=== PATIENT | male | born 1985 | race Asian ===

== ENCOUNTER → 2016-07-17 | Outpatient (REF) | payer OTHER ==
[2016-07-17 12:19] LABS: ALBUMIN 3.9 GM/DL (3.2-5.2); ALBUMIN/GLOBULIN RATIO 0.98 (1.00-1.93); ALKALINE PHOSPHATASE 88 U/L (45-117); ALT/SGPT 71 U/L (12-78); ANION GAP 7 MEQ/L (8-16); AST/SGOT 35 U/L (15-37); BILIRUBIN,TOTAL 0.5 MG/DL (0.2-1.0); BLOOD UREA NITROGEN 14 MG/DL (7-18); CALCIUM LEVEL 9.1 MG/DL (8.5-10.1); CARBON DIOXIDE LEVEL 31 MEQ/L (21-32); CHLORIDE LEVEL 102 MEQ/L (98-107); CHOLESTEROL LEVEL 153 MG/DL (<200); CREATININE FOR GFR 0.85 MG/DL (0.70-1.30); GLOMERULAR FILTRATION RATE > 60.0 (>60); GLUCOSE, FASTING 96 MG/DL (70-105); POTASSIUM SERUM 4.2 MEQ/L (3.5-5.1); SODIUM LEVEL 140 MEQ/L (136-145); TOTAL PROTEIN 7.9 GM/DL (6.4-8.2); TRIGLYCERIDES LEVEL 103 MG/DL (<150)
== END ==
LOC: M SFHCPLAZ 09:42
PROVIDERS: ATTEND Physician Assistant
DX: R73.03 Prediabetes (principal); E78.5 Hyperlipidemia, unspecified

== ENCOUNTER 2016-07-28 00:49 | Emergency (ER) | payer MEDICAID, OTHER ==
[~2016-07-28] VITALS: Ht 154.9 cm; Wt 88.0 kg
[2016-07-28 00:56] VITALS: BP 141/89
[2016-07-28] MEDS ORDERED: ABIL15TA2 (01:12)
[2016-07-28] MEDS ORDERED: TRAZ50TA4 (01:12)
[2016-07-28] MEDS ORDERED: OMEP40CA2 (01:12)
[2016-07-28] MEDS ORDERED: EFFE75CA75 (01:12)
[2016-07-28] MEDS ORDERED: METF500T (01:12)
[2016-07-28] MEDS ORDERED: KETOROLAC 30 MG/ML VIAL (J1885) IV ONE (01:30)
[2016-07-28] MEDS ORDERED: NAPR500T PO (01:39)
[2016-07-28] MEDS ORDERED: KETOROLAC 30 MG/ML VIAL (J1885) IM ONE (01:45)
== END 2016-07-28 02:09 | disposition home or self-care (01) ==
LOC: M ED 01:51
DX: S33.9XXA Sprain of unspecified parts of lumbar spine and pelvis, initial encounter (principal); X50.9XXA Other and unspecified overexertion or strenuous movements or postures, initial encounter; Y92.89 Other specified places as the place of occurrence of the external cause; Y93.89 Activity, other specified; Y99.0 Civilian activity done for income or pay; E11.9 Type 2 diabetes mellitus without complications; K21.9 Gastro-esophageal reflux disease without esophagitis; F41.9 Anxiety disorder, unspecified; F32.9 Major depressive disorder, single episode, unspecified

== ENCOUNTER → 2016-10-29 | Outpatient (REF) | payer OTHER, MEDICAID ==
[~2016-10-29] MED LIST: ABIL15TA2; EFFE75CA75; METF500T; NAPR500T PO; OMEP40CA2; TRAZ50TA4
[2016-10-29 13:52] LABS: ALBUMIN 3.6 GM/DL (3.2-5.2); ALKALINE PHOSPHATASE 66 U/L (45-117); ALT/SGPT 36 U/L (12-78); ANION GAP 7 MEQ/L (8-16); AST/SGOT 20 U/L (15-37); BILIRUBIN,TOTAL 0.5 MG/DL (0.2-1.0); BLOOD UREA NITROGEN 8 MG/DL (7-18); CALCIUM LEVEL 9.2 MG/DL (8.5-10.1); CARBON DIOXIDE LEVEL 28 MEQ/L (21-32); CHLORIDE LEVEL 105 MEQ/L (98-107); CREATININE FOR GFR 0.83 MG/DL (0.70-1.30); GLOMERULAR FILTRATION RATE > 60.0 (>60); GLUCOSE, FASTING 90 MG/DL (70-105); POTASSIUM SERUM 4.3 MEQ/L (3.5-5.1); SODIUM LEVEL 140 MEQ/L (136-145); TOTAL PROTEIN 7.2 GM/DL (6.4-8.2)
== END ==
LOC: M LABDRAW1 12:59
PROVIDERS: ATTEND Physician Assistant
DX: R73.03 Prediabetes (principal)

== ENCOUNTER 2016-12-22 15:56 | Emergency (ER) | payer MEDICAID, OTHER ==
[~2016-12-22] VITALS: Ht 154.9 cm; Wt 72.7 kg
[2016-12-22 15:56] VITALS: BP 134/80
[~2016-12-22 15:56] MED LIST changes: -ABIL15TA2; +ABIL1TAB12; -METF500T; +METF500T13; +TRAZ50TA11; -TRAZ50TA4
[2016-12-22] MEDS ORDERED: ARIP1TAB10 (16:02)
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
== END 2016-12-22 17:17 | disposition home or self-care (01) ==
LOC: M ED 15:56
DX: M25.562 Pain in left knee (principal)

== ENCOUNTER 2017-01-06 10:13 | Emergency (ER) | payer OTHER ==
[~2017-01-06] VITALS: Ht 154.9 cm; Wt 75.9 kg
[2017-01-06 10:13] VITALS: BP 148/74
[~2017-01-06 10:13] MED LIST changes: +ARIP1TAB10
[2017-01-06] MEDS ORDERED: NAPR500T PO (10:41)
== END 2017-01-06 10:56 | disposition home or self-care (01) ==
LOC: M ED 10:13
DX: M25.562 Pain in left knee (principal); F99 Mental disorder, not otherwise specified; Z88.1 Allergy status to other antibiotic agents; Z88.2 Allergy status to sulfonamides; Z79.899 Other long term (current) drug therapy; Z79.01 Long term (current) use of anticoagulants

== ENCOUNTER → 2017-05-09 | Outpatient (REF) | payer OTHER ==
[2017-05-09 12:30] LABS: ALBUMIN 4.2 GM/DL (3.2-5.2); ALKALINE PHOSPHATASE 73 U/L (45-117); ALT/SGPT 38 U/L (12-78); ANION GAP 5 MEQ/L (8-16); AST/SGOT 24 U/L (7-37); BILIRUBIN,TOTAL 0.5 MG/DL (0.2-1.0); BLOOD UREA NITROGEN 11 MG/DL (7-18); CALCIUM LEVEL 9.6 MG/DL (8.5-10.1); CARBON DIOXIDE LEVEL 30 MEQ/L (21-32); CHLORIDE LEVEL 101 MEQ/L (98-107); CREATININE FOR GFR 0.71 MG/DL (0.70-1.30); GLOMERULAR FILTRATION RATE > 60.0 (>60); GLUCOSE, FASTING 100 MG/DL (70-105); POTASSIUM SERUM 4.7 MEQ/L (3.5-5.1); SODIUM LEVEL 136 MEQ/L (136-145); TOTAL PROTEIN 8.4 GM/DL (6.4-8.2)
== END ==
LOC: M SFHCPLAZ 08:54
PROVIDERS: ATTEND Physician Assistant
DX: R73.03 Prediabetes (principal)

== ENCOUNTER → 2017-10-04 | Outpatient (CLI) | payer OTHER ==
[2017-10-04 08:44] LABS: BASO # 0.1 10^3/uL (0.0-0.2); BASO % 0.7 % (0.0-1.0); EOS # 0.2 10^3/uL (0.0-0.50); EOS % 2.4 % (0.0-3.0); HEMATOCRIT 45.3 % (42.0-52.0); IMMATURE GRANULOCYTE % 0.6 % (0-3.0); LYMPH # 2.8 10^3/uL (1.5-4.5); LYMPH % 34.9 % (24.0-44.0); MEAN CORPUSCULAR HEMOGLOBIN 27.9 pg (27.0-33.0); MEAN CORPUSCULAR HGB CONC 33.1 g/dl (32.0-36.5); MEAN CORPUSCULAR VOLUME 84.4 fl (80.0-96.0); MONO # 0.9 10^3/uL (0.0-0.8); MONO % 10.7 % (0.0-5.0); NEUTROPHILS # 4.1 10^3/uL (1.8-7.7); NEUTROPHILS % 50.7 % (36.0-66.0); PLATELET COUNT, AUTOMATED 344 10^3/uL (150-450); RED BLOOD COUNT 5.37 10^6/uL (4.30-6.10); RED CELL DISTRIBUTION WIDTH 13.3 % (11.5-14.5); WHITE BLOOD COUNT 8.1 10^3/uL (4.0-10.0)
[2017-10-04 09:20] LABS: ALBUMIN 4.1 GM/DL (3.2-5.2); ALBUMIN/GLOBULIN RATIO 0.93 (1.00-1.93); ALKALINE PHOSPHATASE 68 U/L (45-117); ALT/SGPT 28 U/L (12-78); ANION GAP 6 MEQ/L (8-16); AST/SGOT 21 U/L (7-37); BILIRUBIN,TOTAL 0.5 MG/DL (0.2-1.0); BLOOD UREA NITROGEN 11 MG/DL (7-18); CALCIUM LEVEL 9.1 MG/DL (8.5-10.1); CARBON DIOXIDE LEVEL 28 MEQ/L (21-32); CHLORIDE LEVEL 106 MEQ/L (98-107); CHOLESTEROL LEVEL 258 MG/DL (<200); CHOLESTEROL RISK RATIO 5.058 (<5); CPK CREATINE PHOSPHOKINASE 226 U/L (39-308); CREATININE FOR GFR 0.79 MG/DL (0.70-1.30); FREE T4 0.81 NG/DL (0.76-1.46); GLOMERULAR FILTRATION RATE > 60.0 (>60); GLUCOSE, FASTING 110 MG/DL (70-100); HDL CHOLESTEROL 51 MG/DL (>40); LDL CHOLESTEROL 128.6 MG/DL (<100); NON-HDL-C 207 MG/DL; POTASSIUM SERUM 4.6 MEQ/L (3.5-5.1); SODIUM LEVEL 140 MEQ/L (136-145); TOTAL PROTEIN 8.5 GM/DL (6.4-8.2); TRIGLYCERIDES LEVEL 392 MG/DL (<150)
[2017-10-04 10:47] LABS: ESTIMATED AVERAGE GLUCOSE 126 MG/DL (60-110)
== END ==
LOC: M RAD 08:23
DX: K76.0 Fatty (change of) liver, not elsewhere classified (principal); J30.9 Allergic rhinitis, unspecified; E78.5 Hyperlipidemia, unspecified; E66.9 Obesity, unspecified; R73.01 Impaired fasting glucose
CPT/HCPCS: 76705

== ENCOUNTER → 2018-02-27 | Outpatient (REF) | payer OTHER ==
[2018-02-27 12:24] LABS: ALBUMIN/GLOBULIN RATIO 0.98 (1.00-1.93); ALKALINE PHOSPHATASE 74 U/L (45-117); ALT/SGPT 35 U/L (12-78); ANION GAP 4 MEQ/L (8-16); AST/SGOT 25 U/L (7-37); BILIRUBIN,TOTAL 0.5 MG/DL (0.2-1.0); BLOOD UREA NITROGEN 8 MG/DL (7-18); CALCIUM LEVEL 8.9 MG/DL (8.5-10.1); CARBON DIOXIDE LEVEL 31 MEQ/L (21-32); CHLORIDE LEVEL 105 MEQ/L (98-107); CHOLESTEROL LEVEL 189 MG/DL (<200); CREATININE FOR GFR 0.82 MG/DL (0.70-1.30); FREE T4 0.98 NG/DL (0.76-1.46); GLOMERULAR FILTRATION RATE > 60.0 (>60); GLUCOSE, FASTING 101 MG/DL (70-100); HDL CHOLESTEROL 50 MG/DL (>40); LDL CHOLESTEROL 94 MG/DL (<100); NON-HDL-C 139 MG/DL; POTASSIUM SERUM 4.6 MEQ/L (3.5-5.1); SODIUM LEVEL 140 MEQ/L (136-145); THYROID STIMULATING HORMONE 0.967 uIU/ML (0.358-3.740); TOTAL PROTEIN 8.1 GM/DL (6.4-8.2); TRIGLYCERIDES LEVEL 223 MG/DL (<150)
[2018-02-27 12:26] LABS: ESTIMATED AVERAGE GLUCOSE 117 MG/DL (60-110); HEMOGLOBIN A1c 5.7 %
== END ==
LOC: M SFHCPLAZ 10:00
DX: E78.5 Hyperlipidemia, unspecified (principal); F41.9 Anxiety disorder, unspecified; R73.01 Impaired fasting glucose

== ENCOUNTER → 2018-10-13 | Outpatient (REF) | payer OTHER ==
[~2018-10-13] MED LIST changes: +EFFE75CA2; -EFFE75CA75; +NAPR-837 PO; -NAPR500T PO; +TRAZ-160; -TRAZ50TA11
[2018-10-13 14:08] LABS: BASO # 0.1 10^3/uL (0.0-0.2); BASO % 0.5 % (0.0-1.0); EOS # 0.2 10^3/uL (0.0-0.50); EOS % 2.2 % (0.0-3.0); HEMATOCRIT 43.8 % (42.0-52.0); HEMOGLOBIN 13.7 g/dl (13.5-17.5); LYMPH # 2.5 10^3/uL (1.5-4.5); LYMPH % 22.9 % (24.0-44.0); MEAN CORPUSCULAR HEMOGLOBIN 27.4 pg (27.0-33.0); MEAN CORPUSCULAR HGB CONC 31.3 g/dl (32.0-36.5); MEAN CORPUSCULAR VOLUME 87.6 fl (80.0-96.0); MONO % 9.4 % (0.0-5.0); NEUTROPHILS # 7.1 10^3/uL (1.8-7.7); NEUTROPHILS % 64.7 % (36.0-66.0); PLATELET COUNT, AUTOMATED 346 10^3/uL (150-450); WHITE BLOOD COUNT 10.9 10^3/uL (4.0-10.0)
[2018-10-13 16:36] LABS: HEMOGLOBIN A1c 5.9 %
[2018-10-13 19:28] LABS: ALBUMIN 3.9 GM/DL (3.2-5.2); ALT/SGPT 24 U/L (12-78); BILIRUBIN,TOTAL 0.4 MG/DL (0.2-1.0); BLOOD UREA NITROGEN 8 MG/DL (7-18); CALCIUM LEVEL 9.4 MG/DL (8.5-10.1); CARBON DIOXIDE LEVEL 31 MEQ/L (21-32); CHLORIDE LEVEL 105 MEQ/L (98-107); CREATININE FOR GFR 0.77 MG/DL (0.70-1.30); FREE T4 0.96 NG/DL (0.76-1.46); GLOMERULAR FILTRATION RATE > 60.0 (>60); GLUCOSE, FASTING 107 MG/DL (70-100); POTASSIUM SERUM 4.5 MEQ/L (3.5-5.1); SODIUM LEVEL 140 MEQ/L (136-145); TOTAL PROTEIN 7.8 GM/DL (6.4-8.2)
== END ==
LOC: M SFHCPLAZ 10:07
PROVIDERS: ATTEND Physician Assistant Medical
DX: J30.9 Allergic rhinitis, unspecified (principal); R79.89 Other specified abnormal findings of blood chemistry; F41.9 Anxiety disorder, unspecified; R73.01 Impaired fasting glucose

== ENCOUNTER → 2018-11-14 | Outpatient (CLI) | payer OTHER ==
[~2018-11-14] MED LIST changes: -TRAZ-160; +TRAZ-252
--- NOTE | 2018-11-14 08:48 | REP ---
Right upper quadrant sonography: History: Fatty liver. Comparison sonography 10/04 normal measured at 0.4 cm. Liver parenchyma is somewhat echogenic as before. No focal liver lesion is seen. There is no evidence of ascites or right renal abnormality. The right kidney measures 10.0 x 5.3 x 5.3 cm. Impression: Findings suggestive of fatty infiltration of the liver. No focal liver lesion. Otherwise negative. Electronically Signed by Sathish Rivera MD 11/14/2018 10:26 A
== END ==
LOC: M RAD 06:54
PROVIDERS: ATTEND Physician Assistant Medical
DX: K76.0 Fatty (change of) liver, not elsewhere classified (principal)

== ENCOUNTER 2018-11-23 23:02 | Emergency (ER) | payer OTHER ==
[~2018-11-23] VITALS: Ht 154.9 cm; Wt 76.8 kg
[2018-11-24 00:15] VITALS: BP 132/78
--- NOTE | 2018-11-24 07:24 | REP ---
Clinical: Trauma. Technique: AP, lateral, bilateral oblique views right foot . Findings: The osseous structures and joint spaces are intact and normal. There is no evidence for acute fracture or dislocation. Surrounding soft tissues are unremarkable. No subcutaneous emphysema or radiodense foreign body. Impression: Normal right foot series . No acute fracture or dislocation. Electronically Signed by Shai Winston MD 11/24/2018 07:15 A
== END 2018-11-24 00:36 | disposition home or self-care (01) ==
LOC: M ED 23:02
DX: S93.601A Unspecified sprain of right foot, initial encounter (principal); X50.9XXA Other and unspecified overexertion or strenuous movements or postures, initial encounter; Y92.410 Unspecified street and highway as the place of occurrence of the external cause; E11.9 Type 2 diabetes mellitus without complications; K21.9 Gastro-esophageal reflux disease without esophagitis; F33.9 Major depressive disorder, recurrent, unspecified; F41.9 Anxiety disorder, unspecified; Z79.899 Other long term (current) drug therapy; Z79.84 Long term (current) use of oral hypoglycemic drugs; Z88.1 Allergy status to other antibiotic agents; Z88.2 Allergy status to sulfonamides

== ENCOUNTER 2018-11-27 21:23 | Emergency (ER) | payer OTHER ==
[~2018-11-27] VITALS: Ht 154.9 cm; Wt 74.1 kg
[2018-11-27 21:23] VITALS: BP 134/88
[2018-11-27] MEDS ORDERED: POLYSOL OP (22:25)
[2018-11-27] MEDS ORDERED: POLYTRIM OPTH DROPS 10ML OU ONE (22:30)
== END 2018-11-27 22:45 | disposition home or self-care (01) ==
LOC: M ED 21:23
DX: H10.33 Unspecified acute conjunctivitis, bilateral (principal); E11.9 Type 2 diabetes mellitus without complications; Z79.899 Other long term (current) drug therapy; Z88.2 Allergy status to sulfonamides; Z88.1 Allergy status to other antibiotic agents

== ENCOUNTER 2019-01-27 18:56 | Emergency (ER) | payer OTHER ==
[~2019-01-27] VITALS: Ht 152.4 cm; Wt 72.7 kg
[~2019-01-27 18:56] MED LIST changes: +POLYSOL OP
[2019-01-27] MEDS ORDERED: DOXY-350 PO (21:12)
[2019-01-27] MEDS ORDERED: LEVO0.5S15 OP (21:12)
[2019-01-27] MEDS ORDERED: diphenhydrAMINE 25 MG CAP PO ONE (21:15)
[2019-01-27] MEDS ORDERED: methylPREDNISolone INJ 125 MG/2 ML VIAL (J2930) IM ONE (21:15)
[2019-01-27 21:28] VITALS: BP 132/82
== END 2019-01-27 21:33 | disposition home or self-care (01) ==
LOC: M ED 18:56
DX: R21 Rash and other nonspecific skin eruption (principal); J32.1 Chronic frontal sinusitis; H10.33 Unspecified acute conjunctivitis, bilateral; E11.9 Type 2 diabetes mellitus without complications; F41.9 Anxiety disorder, unspecified; K76.0 Fatty (change of) liver, not elsewhere classified; K21.9 Gastro-esophageal reflux disease without esophagitis; Z88.1 Allergy status to other antibiotic agents; Z88.2 Allergy status to sulfonamides; Z79.84 Long term (current) use of oral hypoglycemic drugs; Z79.899 Other long term (current) drug therapy
CPT/HCPCS: 96372; 99283; J2930

== ENCOUNTER → 2019-05-14 | Outpatient (CLI) | payer OTHER ==
[~2019-05-14] MED LIST changes: +DOXY-350 PO; +LEVO0.5S15 OP; -OMEP40CA2; +OMEP40CA97
[2019-05-14 13:07] LABS: HEMOGLOBIN A1c 5.9 %
[2019-05-14 13:15] LABS: ALBUMIN 4.1 GM/DL (3.2-5.2); ALT/SGPT 22 U/L (12-78); BILIRUBIN,TOTAL 0.3 MG/DL (0.2-1.0); BLOOD UREA NITROGEN 9 MG/DL (7-18); CALCIUM LEVEL 9.2 MG/DL (8.5-10.1); CARBON DIOXIDE LEVEL 31 MEQ/L (21-32); CHLORIDE LEVEL 106 MEQ/L (98-107); CHOLESTEROL LEVEL 216 MG/DL (<200); CHOLESTEROL RISK RATIO 4.235 (<5); CREATININE FOR GFR 0.83 MG/DL (0.70-1.30); GLOMERULAR FILTRATION RATE > 60.0 (>60); GLUCOSE, FASTING 103 MG/DL (70-100); HDL CHOLESTEROL 51 MG/DL (>40); LDL CHOLESTEROL 119 MG/DL (<100); NON-HDL-C 165 MG/DL; POTASSIUM SERUM 4.4 MEQ/L (3.5-5.1); SODIUM LEVEL 141 MEQ/L (136-145); TRIGLYCERIDES LEVEL 232 MG/DL (<150)
== END ==
LOC: M LAB 11:52
PROVIDERS: ATTEND Physician Assistant Medical
DX: R79.89 Other specified abnormal findings of blood chemistry (principal); R73.01 Impaired fasting glucose; E78.5 Hyperlipidemia, unspecified

== ENCOUNTER 2019-08-08 04:24 | Inpatient (IN) | payer MEDICAID, OTHER ==
[~2019-08-08] VITALS: Ht 154.9 cm; Wt 77.2 kg
[2019-08-08] MEDS ORDERED: OMEP40CA97 PO (05:05)
[2019-08-08] MEDS ORDERED: METF-791 PO (05:05)
[2019-08-08] MEDS ORDERED: EFFE75CA2 PO (05:05)
[2019-08-08 05:07] LABS: HEMATOCRIT 49.2 % (42.0-52.0); HEMOGLOBIN 16.2 g/dl (13.5-17.5); MEAN CORPUSCULAR HEMOGLOBIN 28.2 pg (27.0-33.0); MEAN CORPUSCULAR HGB CONC 32.9 g/dl (32.0-36.5); MEAN CORPUSCULAR VOLUME 85.6 fl (80.0-96.0); PLATELET COUNT, AUTOMATED 372 10^3/uL (150-450); RED BLOOD COUNT 5.75 10^6/uL (4.30-6.10); WHITE BLOOD COUNT 11.8 10^3/uL (4.0-10.0)
[2019-08-08 05:35] LABS: AMPHETAMINES LEVEL URINE NEGATIVE (NEGATIVE); BARBITURATES URINE NEGATIVE (NEGATIVE); BENZODIAZEPINES URINE NEGATIVE (NEGATIVE); CANNABINOIDS URINE NEGATIVE (NEGATIVE); COCAINE METABOLITE URINE NEGATIVE (NEGATIVE); METHADONE URINE NEGATIVE (NEGATIVE); OPIATES URINE NEGATIVE (NEGATIVE); PHENCYCLIDINE URINE NEGATIVE (NEGATIVE)
[2019-08-08 05:54] LABS: ACETAMINOPHEN LEVEL < 2.0 UG/ML (10.0-30.0); ALBUMIN 4.7 GM/DL (3.2-5.2); ALT/SGPT 36 U/L (12-78); BILIRUBIN,DIRECT 0.1 MG/DL (0.0-0.2); BILIRUBIN,TOTAL 0.7 MG/DL (0.2-1.0); BLOOD UREA NITROGEN 10 MG/DL (7-18); CALCIUM LEVEL 10.1 MG/DL (8.5-10.1); CARBON DIOXIDE LEVEL 32 MEQ/L (21-32); CHLORIDE LEVEL 100 MEQ/L (98-107); CREATININE FOR GFR 0.98 MG/DL (0.70-1.30); ETHYL ALCOHOL (ETHANOL) < 0.003 % (0.000-0.010); GLOMERULAR FILTRATION RATE > 60.0 (>60); GLUCOSE, FASTING 117 MG/DL (70-100); POTASSIUM SERUM 4.2 MEQ/L (3.5-5.1); SALICYLATE LEVEL < 1.7 MG/DL (5.0-30.0); SODIUM LEVEL 138 MEQ/L (136-145); TOTAL PROTEIN 9.1 GM/DL (6.4-8.2)
[2019-08-08] MEDS ORDERED: OMEPRAZOLE 20 MG CAP PO ONE (08:30)
[2019-08-08] MEDS ORDERED: VENLAFAXINE **XR** 75MG CAPSULE PO ONE (08:30)
[2019-08-08] MEDS: metFORMIN (GLUCOPHAGE) 500 MG TAB PO ONE ×2 (08:46→08:50)
[2019-08-08] MEDS ORDERED: VENLAFAXINE **XR** 75MG CAPSULE PO SCH (09:00)
[2019-08-08] MEDS ORDERED: metFORMIN (GLUCOPHAGE) 500 MG TAB PO SCH (09:00)
[2019-08-08] MEDS ORDERED: OMEPRAZOLE 20 MG CAP PO SCH (09:00)
[2019-08-08] MEDS ORDERED: MOM 30ML SUSPENSION UDC PO PRN (12:45)
[2019-08-08] MEDS ORDERED: MAALOX 30 ML SUSP *UDC PO PRN (12:45)
[2019-08-08 13:27] VITALS: BP 147/89
--- NOTE | 2019-08-08 16:34 | HPEPDOC ---
General Date of Admission Aug 08, 2019 at 12:45 Date of Service: Aug 08, 2019 Chief Complaint The patient is a 33-year-old male admitted with a reason for visit of Unspecified Depression. Source: Patient Exam Limitations: No limitations Timing/Duration: Day(s) Severity: Moderate Associated Symptoms: Other (depression , anxiety) History of Present Illness HISTORY OF PRESENT ILLNESS: Patient is 33 years old male with past medical history of anxiety and depression, GERD, diabetes, who was admitted in the hospital with suicidal ideation. He denied any cardiovascular problem, breathing problem, GI problem or dysuria. He denies fever, chills, nausea, vomiting, shortness of breath, palpitations, diarrhea or dysuria Home Medications Scheduled Metformin HCl (Metformin HCl ER) 500 Mg Tab.er.24h, 500 MG PO ACS, (Reported) Omeprazole (Omeprazole) 40 Mg Capsule.dr, 40 MG PO DAILY, (Reported) Venlafaxine HCl (Effexor Xr) 75 Mg Cap.er.24h, 75 MG PO DAILY, (Reported) Allergies Coded Allergies: Sulfa (Sulfonamide Antibiotics) (Verified Allergy, Intermediate, 08/08/19) rash clarithromycin (Verified Allergy, Intermediate, 08/08/19) rash Past Medical History Medical History Diabetes type 2, anxiety, depression, GERD Family History Patient was adopted Social History * Smoker: Denies Alcohol: Denies Drugs: denies A-FIB/CHADSVASC A-FIB History Current/History of A-Fib/PAF?: No Current PO Anticoag Therapy: No Review of Systems Constitutional: Denies: Chills Eyes: Denies: Pain, Vision change ENT: Denies: Head Aches Skin: Denies: Rash, Lesions Pulmonary: Denies: Dyspnea Cardiovascular: Denies: Chest Pain Gastrointestinal: Denies: Nausea, Vomiting Genitourinary: Denies: Dysuria, Frequency Hematologic: Denies: Bruising Endocrine: Denies: Polydipsia Musculoskeletal: Denies: Neck Pain Neurological: Denies: Weakness Psych: Reports: Anxiety, Depression Physical Examination General Exam: Positive: Alert, Cooperative, No Acute Distress Eye Exam: Positive: PERRLA ENT Exam: Positive: Atraumatic Neck Exam: Positive: Supple; Negative: JVD Chest Exam: Positive: Clear to auscultation Heart Exam: Positive: Rate Normal Telemetry: Positive: No significant arrhythmia Abdomen Exam: Positive: Normal bowel sounds Extremity Exam: Positive: Clubbing Skin Exam: Positive: Nl turgor and temperature Neuro Exam: Positive: Normal Gait, Strength at 5/5 X4 ext Psych Exam: Positive: Mental status NL Vital Signs Vital Signs Date Time Temp Pulse Resp B/P (MAP) Pulse Ox O2 Delivery O2 Flow Rate FiO2 08/08/19 13:27 98.4 100 18 147/89 (108) 98 Room Air Laboratory Data Labs 24H Laboratory Tests 2 08/08/19 04:57: Nucleated Red Blood Cells % (auto) 0.0, Anion Gap 6L, Glomerular Filtration Rate > 60.0, Calcium Level 10.1, Total Bilirubin 0.7, Direct Bilirubin 0.1, Aspartate Amino Transf (AST/SGOT) 20, Alanine Aminotransferase (ALT/SGPT) 36, Alkaline Phosphatase 74, Total Protein 9.1H, Albumin 4.7, Albumin/Globulin Ratio 1.07, Thyroid Stimulating Hormone (TSH) 3.810H, Salicylates Level < 1.7L, Urine Opiates Screen NEGATIVE, Urine Methadone Screen NEGATIVE, Acetaminophen Level < 2.0L, Urine Barbiturates Screen NEGATIVE, Urine Phencyclidine Screen NEGATIVE, Urine Amphetamines Screen NEGATIVE, Urine Benzodiazepines Screen NEGATIVE, Urine Cocaine Metabolite Screen NEGATIVE, Urine Cannabinoids Screen NEGATIVE, Ethyl Alcohol Level < 0.003 CBC/BMP Laboratory Tests 08/08/19 04:57 Assessment/Plan Patient is 33 years old male with past medical history of anxiety and depression, GERD, diabetes, who was admitted in the hospital with suicidal ideation. He denied any cardiovascular problem, breathing problem, GI problem or dysuria. He denies fever, chills, nausea, vomiting, shortness of breath, palpitations, diarrhea or dysuria Problems (1) Depression Status: Acute Problem Text: Management per Psych team (2) Diabetes mellitus Status: Chronic Problem Text: Will check HbA1c Glucose levels under control Continue metformin Diabetes diet (3) GERD (gastroesophageal reflux disease) Status: Chronic Problem Text: Not in acute exacerbation Continue omeprazole by mouth Plan / VTE VTE Prophylaxis Ordered?: No VTE Exclusion Mechanical Proph: Low Risk for VTE SILVESTRE CONNOR DO Aug 08, 2019 16:34
[2019-08-08 17:08] LABS: HEMOGLOBIN A1c 6.1 %
[2019-08-08 17:25] VITALS: BP 128/79
[2019-08-08] MEDS: metFORMIN XR 500MG TAB *GLUCOPHAGE XR PO SCH (17:31)
[2019-08-08] MEDS: ACETAMINOPHEN TAB 650MG DOSE (2X325MG) PO PRN (20:24)
[2019-08-08] MEDS: traZODone 25MG PER 1/2 TABLET PO PRN (23:08)
[2019-08-09 06:24] VITALS: BP 143/89
[2019-08-09] MEDS: OMEPRAZOLE 20 MG CAP PO SCH (08:32)
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
[2019-08-09] MEDS ORDERED: VENLAFAXINE **XR** 75MG CAPSULE PO ONE (11:00)
[2019-08-09 15:00] VITALS: BP 132/80
[2019-08-09] MEDS: metFORMIN XR 500MG TAB *GLUCOPHAGE XR PO SCH (17:26)
[2019-08-09] MEDS: traZODone 25MG PER 1/2 TABLET PO PRN (22:11)
[2019-08-09] MEDS: ACETAMINOPHEN TAB 650MG DOSE (2X325MG) PO PRN (22:11)
[2019-08-10 06:06] VITALS: BP 130/82
[2019-08-10] MEDS: OMEPRAZOLE 20 MG CAP PO SCH (08:20)
[2019-08-10] MEDS: VENLAFAXINE **XR** 75MG CAPSULE PO SCH (08:20)
--- NOTE | 2019-08-10 09:31 | MHIPNPDOC ---
[facility] Progress Note Progress Note Inpatient Progress Note Hari Pham MRN: N/A Date of : N/A Date of Service: 08/10/2019 History of Present Illness The patient, a 33-year-old man with a history of reported depression and autistic traits, presents after a girlfriend cheats on him, making him feel suicidal. Interval History The patient is met with today. He reports that he is much improved since increasing his Effexor to 150 mg daily. The patient reports that he is tolerating this well with no side effects. He has been attending groups, anxious at times and has difficulty socializing due to likely autistic traits, otherwise has no behavioral problems. He reports that he is feeling ready for discharge. Mother is contacted, reports patient is at baseline. Review Of Systems General: Denies fever or appetite changes Cardiovascular: Denies chest pain or palpitations GI: Denies nausea, vomiting, or bowel changes Respiratory: Denies shortness of breath or cough Neuro: Denies dizziness, tremors Derm: Denies any rashes or pruritus : Denies any dysuria or urinary problems MSK: Denies any muscle tightness or stiffness HEENT: Denies any vision changes or headaches Psychotherapy None on this visit. Vital Signs Reviewed. Mental Status Examination General: Well dressed with good hygiene Speech: Spontaneous and fluid Thought processes: Linear and logical MSK: Smooth and coordinated gait, no signs of tremors or involuntary orofacial movements Thought content: Future orientated Abstract reasoning, and computation: Intact Description of associations: Intact Description of abnormal or psychotic thoughts: Denies any suicidal or homicidal ideation. Denies any auditory or visual hallucinations. Does not appear to be responding to internal stimuli. Does not appear to be endorsing any bizarre or paranoid ideation. Judgment: fair Insight: fair Orientation: Alert and orientated 3 Cognition: Grossly normal Recent and remote memory: Intact Attention span and concentration: Intact Fund of knowledge: Adequate Mood: "okay" Affect: Euthymic with a full range Diagnoses Adjustment disorder with disruption of mood and conduct. Autistic traits. Assessment and Plan Adjustment disorder: Continue Effexor 150 mg daily. Autistic traits: Recommend outpatient therapy. Disposition Discharge tomorrow. Time Spent 15 minutes. Saturday Vital Signs Vital Signs Date Time Temp Pulse Resp B/P (MAP) Pulse Ox O2 Delivery O2 Flow Rate FiO2 08/10/19 06:06 97.7 72 16 130/82 (98) 08/09/19 15:00 98 Room Air Current Medications Current Medications Medications (Trade) Dose Ordered Sig/Dionna Route PRN Reason Start Time Stop Time Status Last Admin Dose Admin Acetaminophen (Tylenol Tab) 650 mg Q6HP PRN PO HEADACHE or DISCOMFORT 08/08/19 12:45 08/09/19 22:11 Al Hydrox/Mg Hydrox/Simethicone (Mylanta) 30 ml Q4HP PRN PO HEARTBURN/INDIGESTION 08/08/19 12:45 Home Med (Med Rec Complete!) ASDIRECTED XX 08/08/19 08:30 08/08/19 08:26 DC Magnesium Hydroxide (Milk Of Magnesia) 30 ml DAILYPRN PRN PO CONSTIPATION 08/08/19 12:45 Metformin HCl (Glucophage Xr) 500 mg ACS PO 08/08/19 17:30 08/09/19 17:26 Metformin HCl (Glucophage) 500 mg DAILY PO 08/08/19 09:00 Cancel Omeprazole (PriLOSEC) 40 mg DAILY PO 08/08/19 09:00 Cancel Omeprazole (PriLOSEC) 40 mg DAILY PO 08/09/19 09:00 08/10/19 08:20 Trazodone HCl (Desyrel) 25 mg QHSP PRN PO INSOMNIA 08/08/19 22:52 08/09/19 22:11 Venlafaxine HCl (Effexor Xr) 75 mg DAILY PO 08/08/19 09:00 Cancel Venlafaxine HCl (Effexor Xr) 150 mg DAILY PO 08/10/19 09:00 08/10/19 08:20 Allergies Coded Allergies: Sulfa (Sulfonamide Antibiotics) (Verified Allergy, Intermediate, 08/08/19) rash clarithromycin (Verified Allergy, Intermediate, 08/08/19) rash SIMI JOHNSON DO Aug 10, 2019 09:31
[2019-08-10 16:00] VITALS: BP 133/69
[2019-08-10] MEDS: metFORMIN XR 500MG TAB *GLUCOPHAGE XR PO SCH (17:17)
[2019-08-10] MEDS: traZODone 25MG PER 1/2 TABLET PO PRN (21:10)
[2019-08-11 06:23] VITALS: BP 139/80
[2019-08-11] MEDS: OMEPRAZOLE 20 MG CAP PO SCH (08:20)
[2019-08-11] MEDS: VENLAFAXINE **XR** 75MG CAPSULE PO SCH (08:20)
[2019-08-11] MEDS ORDERED: VENL75CA47 PO (09:19)
--- NOTE | 2019-08-11 09:43 | MHDSPDOC ---
[facility] Discharge Summary Discharge Summary DATE OF ADMISSION: Aug 08, 2019 at 12:45 DATE OF DISCHARGE: 08/10/19 Discharge Hari Pham MRN: N/A Date of : N/A Date of Service: 08/11/2019 Diagnoses Adjustment disorder with disruption of mood and conduct. Autistic traits. History of Present Illness The patient, a 33-year-old man with a history of reported depression and autistic traits, presents after a girlfriend cheats on him, making him feel suicidal. Consultants Involved Hospitalist/PCP screening Treatment and Progress On The Unit Patient was admitted to the inpatient mental health unit after reportedly feeling suicidal. He was increased from 75 up to 150 mg daily of his Effexor with positive result. He did well on the unit, socialized and became more calm as he was present on the unit. It became quite clear that his talkativity and s ocialization problems are due to potentially autistic traits. He had no behavioral problems and eventually improved. No longer suicidal, requested discharge. Discharge Assessment 33-year-old man with an adjustment on top of like the autistic traits presents and has increased on his Effexor with positive results, he improves well with mildly supportive treatment. The patient at the time of discharge did not meet criteria for involuntary admission/extension due to having a normal mental status exam, fair insight into the situation, They are engaged in the discharge process, as well as being friendly and amenable in behavioral control and havent been engaging in any observed concerning behavior or ideation recently. They decline voluntary extension/admission at this time and must be discharged in good hattie, as Im unable to make a case for holding the patient against their will. They may have historical risk factors of admissions and other interactions with psychiatry however, those are not modifiable from a clinical perspective. The patient will need to be discharged in good hattie. Mental Status Examination General: Well dressed with good hygiene Speech: Spontaneous and fluid Thought processes: Linear and logical MSK: Smooth and coordinated gait, no signs of tremors or involuntary orofacial movements Thought content: Future orientated Abstract reasoning, and computation: Intact Description of associations: Intact Description of abnormal or psychotic thoughts: Denies any suicidal or homicidal ideation. Denies any auditory or visual hallucinations. Does not appear to be responding to internal stimuli. Does not appear to be endorsing any bizarre or paranoid ideation. Judgment: fair Insight: fair Orientation: Alert and orientated 3 Cognition: Grossly normal Recent and remote memory: Intact Attention span and concentration: Intact Fund of knowledge: Adequate Mood: "okay" Affect: Euthymic with a full range Follow Up The social work team worked during the predischarge meeting in order to evaluate for further issues of lethality address them fully before discharge. They worked on safety planning with the patient's family members in order to ensure that the patient will have a safe and effective discharge. Time Spent The amount of time spent in the coordination of care for this patient was approximately 40 minutes. Saturday Vital Signs/I&Os Vital Signs Date Time Temp Pulse Resp B/P (MAP) Pulse Ox O2 Delivery O2 Flow Rate FiO2 08/11/19 06:23 98.7 83 16 139/80 (99) 08/10/19 11:21 Room Air 08/09/19 15:00 98 Medications Scheduled Metformin HCl (Metformin HCl ER) 500 Mg Tab.er.24h, 500 MG PO ACS, (Reported) Omeprazole (Omeprazole) 40 Mg Capsule.dr, 40 MG PO DAILY, (Reported) Venlafaxine HCl (Venlafaxine HCl ER) 75 Mg Cap.er.24h, 150 MG PO DAILY for mood for 7 Days, #14 Allergies Coded Allergies: Sulfa (Sulfonamide Antibiotics) (Verified Allergy, Intermediate, 08/08/19) rash clarithromycin (Verified Allergy, Intermediate, 08/08/19) rash SIMI JOHNSON DO Aug 11, 2019 09:43
== END 2019-08-11 11:50 | disposition home or self-care (01) | DRG 754 ==
LOC: M ED 04:24 → M ED INP 12:45 → M PSY 13:52
PROVIDERS: ADMIT Psychiatry & Neurology Psychiatry; ATTEND Psychiatry & Neurology Addiction Medicine
DX: F43.21 Adjustment disorder with depressed mood (principal); F43.24 Adjustment disorder with disturbance of conduct; F60.89 Other specific personality disorders; F41.9 Anxiety disorder, unspecified; Z56.0 Unemployment, unspecified; Z91.411 Personal history of adult psychological abuse; Z79.899 Other long term (current) drug therapy; E11.9 Type 2 diabetes mellitus without complications; Z79.84 Long term (current) use of oral hypoglycemic drugs; Z88.2 Allergy status to sulfonamides; Z88.1 Allergy status to other antibiotic agents; K21.9 Gastro-esophageal reflux disease without esophagitis; F32.9 Major depressive disorder, single episode, unspecified; F84.0 Autistic disorder

== ENCOUNTER 2020-01-15 11:39 | Emergency (ER) | payer MEDICAID, OTHER ==
[~2020-01-15] VITALS: Ht 154.9 cm; Wt 77.3 kg
[~2020-01-15 11:39] MED LIST changes: +EFFE75CA2 PO; -LEVO0.5S15 OP; +LEVO0.5S16 OP; +METF-838 PO; +OMEP40CA97 PO; +VENL75CA47 PO
--- NOTE | 2020-01-15 13:15 | REPVR ---
PROCEDURE INFORMATION: Exam: XR Left Foot Complete Exam date and time: 01/15/2020 12:14 PM Age: 34 years old Clinical indication: Injury or trauma; Fall; Initial encounter; Sprain or strain; Foot; Left; Additional info: Trauma, pain over 1-2 metatarsal . TECHNIQUE: Imaging protocol: XR Left foot. Views: 3 or more views. COMPARISON: CR Foot, complete 11/23/2018 11:38 PM FINDINGS: Bones/joints: The tarsometatarsal joint space at the 1st cuneiform and 2nd metatarsal appears widened. The 2nd metatarsal medial margin appears slightly laterally subluxed relative to the 2nd cuneiform medial margin. The 4th metatarsal medial margin appears slightly medially subluxed relative to the medial cuboid margin. No acute fracture is identified. Soft tissues: Midfoot soft tissue swelling. IMPRESSION: Findings highly suspicious for midfoot ligamentous injury (including the Lisfranc ligament) with disruption of the tarsometatarsal joints as described. Further evaluation with MRI is recommended. Electronically signed by: Evaristo Caro On 01/15/2020 13:16:02 PM
[2020-01-15 14:02] VITALS: BP 151/92
== END 2020-01-15 14:58 | disposition home or self-care (01) ==
LOC: M ED 11:39
DX: S99.922A Unspecified injury of left foot, initial encounter (principal); X50.9XXA Other and unspecified overexertion or strenuous movements or postures, initial encounter; Y92.018 Other place in single-family (private) house as the place of occurrence of the external cause; E11.9 Type 2 diabetes mellitus without complications; K21.9 Gastro-esophageal reflux disease without esophagitis; Z79.899 Other long term (current) drug therapy; Z79.84 Long term (current) use of oral hypoglycemic drugs; Z88.1 Allergy status to other antibiotic agents; Z88.2 Allergy status to sulfonamides

== ENCOUNTER → 2020-02-25 | Outpatient (REF) | payer OTHER ==
[2020-02-25 14:49] LABS: CHOLESTEROL LEVEL 339 MG/DL (<200); CHOLESTEROL RISK RATIO 6.519 (<5); FREE T4 1.05 NG/DL (0.76-1.46); HDL CHOLESTEROL 52 MG/DL (>40); NON-HDL-C 287 MG/DL; THYROID STIMULATING HORMONE 0.687 uIU/ML (0.358-3.740); TRIGLYCERIDES LEVEL 792 MG/DL (<150)
[2020-02-25 14:55] LABS: HEMOGLOBIN A1c 5.9 %
== END ==
LOC: M SFHCPLAZ 09:11
PROVIDERS: ATTEND Physician Assistant Medical
DX: R73.01 Impaired fasting glucose (principal); F41.9 Anxiety disorder, unspecified; E78.5 Hyperlipidemia, unspecified

== ENCOUNTER → 2020-04-14 | Outpatient (CLI) | payer OTHER, MEDICAID ==
[2020-04-14 11:58] LABS: BASO % 0.6 % (0.0-1.0); EOS # 0.2 10^3/uL (0.0-0.5); EOS % 2.4 % (0.0-3.0); HEMOGLOBIN 15.4 g/dl (13.5-17.5); LYMPH # 2.7 10^3/uL (1.5-5.0); LYMPH % 39.6 % (24.0-44.0); MEAN CORPUSCULAR HEMOGLOBIN 27.4 pg (27.0-33.0); MEAN CORPUSCULAR HGB CONC 31.4 g/dl (32.0-36.5); MEAN CORPUSCULAR VOLUME 87.2 fl (80.0-96.0); MONO # 0.6 10^3/uL (0.0-0.8); MONO % 8.6 % (0.0-5.0); NEUTROPHILS # 3.3 10^3/uL (1.5-8.5); NEUTROPHILS % 48.4 % (36.0-66.0); PLATELET COUNT, AUTOMATED 375 10^3/uL (150-450); RED BLOOD COUNT 5.62 10^6/uL (4.30-6.10); WHITE BLOOD COUNT 6.7 10^3/uL (4.0-10.0)
[2020-04-14 12:55] LABS: ALBUMIN 4.4 GM/DL (3.2-5.2); ALT/SGPT 44 U/L (12-78); BILIRUBIN,TOTAL 0.6 MG/DL (0.2-1.0); BLOOD UREA NITROGEN 11 MG/DL (7-18); CALCIUM LEVEL 9.9 MG/DL (8.5-10.1); CARBON DIOXIDE LEVEL 29 MEQ/L (21-32); CHLORIDE LEVEL 103 MEQ/L (98-107); CHOLESTEROL LEVEL 177 MG/DL (<200); CREATININE FOR GFR 0.87 MG/DL (0.70-1.30); GLOMERULAR FILTRATION RATE > 60.0 (>60); GLUCOSE, FASTING 113 MG/DL (70-100); HDL CHOLESTEROL 51 MG/DL (>40); LDL CHOLESTEROL 73 MG/DL (<100); NON-HDL-C 126 MG/DL; POTASSIUM SERUM 4.7 MEQ/L (3.5-5.1); SODIUM LEVEL 138 MEQ/L (136-145); THYROID STIMULATING HORMONE 0.923 uIU/ML (0.358-3.740); TOTAL PROTEIN 8.8 GM/DL (6.4-8.2); TRIGLYCERIDES LEVEL 265 MG/DL (<150)
[2020-04-14 13:13] LABS: HEMOGLOBIN A1c 5.9 %
== END ==
LOC: M PLALAB 09:11
PROVIDERS: ATTEND Physician Assistant Medical
DX: E78.2 Mixed hyperlipidemia (principal); I10 Essential (primary) hypertension; E11.9 Type 2 diabetes mellitus without complications; R53.83 Other fatigue; E03.9 Hypothyroidism, unspecified

== ENCOUNTER 2020-11-11 19:00 | Emergency (ER) | payer OTHER, MEDICAID ==
[~2020-11-11] VITALS: Ht 152.4 cm; Wt 84.0 kg
[~2020-11-11 19:00] MED LIST changes: +OMEP40CA4; +OMEP40CA4 PO; -OMEP40CA97; -OMEP40CA97 PO
[2020-11-11 19:52] LABS: HEMATOCRIT 40.7 % (42.0-52.0); HEMOGLOBIN 13.1 g/dl (13.5-17.5); MEAN CORPUSCULAR HEMOGLOBIN 28.1 pg (27.0-33.0); MEAN CORPUSCULAR HGB CONC 32.2 g/dl (32.0-36.5); MEAN CORPUSCULAR VOLUME 87.2 fl (80.0-96.0); PLATELET COUNT, AUTOMATED 355 10^3/uL (150-450); RED BLOOD COUNT 4.67 10^6/uL (4.30-6.10); WHITE BLOOD COUNT 10.3 10^3/uL (4.0-10.0)
[2020-11-11 20:14] LABS: ACETAMINOPHEN LEVEL < 2.0 UG/ML (10.0-30.0); ALBUMIN 3.8 GM/DL (3.2-5.2); ALT/SGPT 63 U/L (12-78); BILIRUBIN,DIRECT < 0.1 MG/DL (0.0-0.2); BILIRUBIN,TOTAL 0.2 MG/DL (0.2-1.0); BLOOD UREA NITROGEN 10 MG/DL (7-18); CALCIUM LEVEL 9.1 MG/DL (8.5-10.1); CARBON DIOXIDE LEVEL 29 MEQ/L (21-32); CHLORIDE LEVEL 106 MEQ/L (98-107); CREATININE FOR GFR 0.78 MG/DL (0.70-1.30); ETHYL ALCOHOL (ETHANOL) < 0.003 % (0.000-0.010); GLOMERULAR FILTRATION RATE > 60.0 (>60); GLUCOSE, FASTING 114 MG/DL (70-100); SALICYLATE LEVEL < 1.7 MG/DL (5.0-30.0); SODIUM LEVEL 140 MEQ/L (136-145); TOTAL PROTEIN 7.8 GM/DL (6.4-8.2)
[2020-11-11 20:43] LABS: AMPHETAMINES LEVEL URINE NEGATIVE (NEGATIVE); BARBITURATES URINE NEGATIVE (NEGATIVE); BENZODIAZEPINES URINE NEGATIVE (NEGATIVE); CANNABINOIDS URINE NEGATIVE (NEGATIVE); COCAINE METABOLITE URINE NEGATIVE (NEGATIVE); METHADONE URINE NEGATIVE (NEGATIVE); OPIATES URINE NEGATIVE (NEGATIVE); PHENCYCLIDINE URINE NEGATIVE (NEGATIVE)
[2020-11-11] MEDS ORDERED: NS 1,000 ML IV ONE (20:45)
[2020-11-11 20:54] LABS: ATYPICAL LYMPH 2 % (0-5); EOSINOPHILS 1 % (0-3); LYMPHOCYTES 49 % (16-44); MONOCYTES 1 % (0-5); NEUTROPHILS 47 % (28-66)
[2020-11-11 20:55] LABS: OVALOCYTES 1+; PLATELET ESTIMATE NORMAL (NORMAL); POIKILOCYTOSIS 1+; SMUDGE CELLS 2+
[2020-11-11 20:56] LABS: POLYCHROMASIA 1+
[2020-11-11 23:17] VITALS: BP 142/88
--- NOTE | 2020-11-12 07:49 | ECGEPIP ---
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
== END 2020-11-11 23:17 | disposition home or self-care (01) ==
LOC: M ED 19:00
DX: R55 Syncope and collapse (principal); E86.0 Dehydration; E11.9 Type 2 diabetes mellitus without complications; E78.5 Hyperlipidemia, unspecified; F33.9 Major depressive disorder, recurrent, unspecified; Z79.899 Other long term (current) drug therapy; Z79.84 Long term (current) use of oral hypoglycemic drugs; Z88.1 Allergy status to other antibiotic agents; Z88.2 Allergy status to sulfonamides

== ENCOUNTER → 2021-03-31 | Outpatient (CLI) | payer OTHER, MEDICAID ==
[2021-03-31 12:05] LABS: BASO # 0.1 10^3/uL (0.0-0.2); BASO % 0.7 % (0.0-1.0); EOS # 0.2 10^3/uL (0.0-0.5); EOS % 2.2 % (0.0-3.0); HEMATOCRIT 48.9 % (42.0-52.0); HEMOGLOBIN 15.5 g/dl (13.5-17.5); LYMPH # 3.9 10^3/uL (1.5-5.0); MEAN CORPUSCULAR HEMOGLOBIN 27.5 pg (27.0-33.0); MEAN CORPUSCULAR HGB CONC 31.7 g/dl (32.0-36.5); MEAN CORPUSCULAR VOLUME 86.7 fl (80.0-96.0); MONO # 0.9 10^3/uL (0.0-0.8); MONO % 9.2 % (2.0-8.0); NEUTROPHILS # 5.1 10^3/uL (1.5-8.5); NEUTROPHILS % 49.6 % (36.0-66.0); PLATELET COUNT, AUTOMATED 346 10^3/uL (150-450); RED BLOOD COUNT 5.64 10^6/uL (4.30-6.10); WHITE BLOOD COUNT 10.2 10^3/uL (4.0-10.0)
[2021-03-31 12:37] LABS: ALBUMIN 4.2 GM/DL (3.2-5.2); ALT/SGPT 50 U/L (12-78); BILIRUBIN,TOTAL 0.4 MG/DL (0.2-1.0); BLOOD UREA NITROGEN 9 MG/DL (7-18); CARBON DIOXIDE LEVEL 33 MEQ/L (21-32); CHLORIDE LEVEL 102 MEQ/L (98-107); CHOLESTEROL LEVEL 148 MG/DL (<200); CHOLESTEROL RISK RATIO 3.217 (<5); CREATININE FOR GFR 0.88 MG/DL (0.70-1.30); FREE T4 1.01 NG/DL (0.76-1.46); GLOMERULAR FILTRATION RATE > 60.0 (>60); GLUCOSE, FASTING 117 MG/DL (70-100); HDL CHOLESTEROL 46 MG/DL (>40); LDL CHOLESTEROL 51 MG/DL (<100); NON-HDL-C 102 MG/DL; POTASSIUM SERUM 4.9 MEQ/L (3.5-5.1); RHEUMATOID FACTOR QUANT < 10.0 IU/ML (<15.0); SODIUM LEVEL 136 MEQ/L (136-145); TOTAL PROTEIN 8.4 GM/DL (6.4-8.2); TRIGLYCERIDES LEVEL 255 MG/DL (<150)
[2021-03-31 12:42] LABS: ERYTHROCYTE SEDIMENTATION RATE 7 mm/hr (0-15)
[2021-03-31 12:45] LABS: HEMOGLOBIN A1c 6.1 %
[2021-04-01 19:07] LABS: ANTINUCLEAR ANTIBODIES DIRECT Negative (Negative)
== END ==
LOC: M PLALAB 09:30
PROVIDERS: ATTEND Physician Assistant Medical
DX: R53.83 Other fatigue (principal); I10 Essential (primary) hypertension; R73.03 Prediabetes; E78.2 Mixed hyperlipidemia; Q98.0 Klinefelter syndrome karyotype 47, XXY

== ENCOUNTER 2023-09-21 11:48 | Emergency (ER) | payer MEDICAID, OTHER ==
[~2023-09-21] VITALS: Ht 152.4 cm; Wt 79.1 kg
[~2023-09-21 11:48] MED LIST changes: -DOXY-350 PO; +DOXY-440 PO
[2023-09-21] MEDS ORDERED: ATOR40TA75 PO (11:57)
[2023-09-21] MEDS ORDERED: LISI20TA33 PO (11:57)
[2023-09-21 13:59] LABS: BASO # 0.1 10^3/uL (0.0-0.2); BASO % 0.4 % (0.0-1.0); EOS % 0.2 % (0.0-3.0); HEMATOCRIT 44.9 % (42.0-52.0); HEMOGLOBIN 14.6 g/dl (13.5-17.5); LYMPH # 1.8 10^3/uL (1.5-5.0); LYMPH % 14.9 % (24.0-44.0); MEAN CORPUSCULAR HEMOGLOBIN 28.5 pg (27.0-33.0); MEAN CORPUSCULAR HGB CONC 32.5 g/dl (32.0-36.5); MEAN CORPUSCULAR VOLUME 87.7 fl (80.0-96.0); MONO # 0.7 10^3/uL (0.0-0.8); MONO % 5.6 % (2.0-8.0); NEUTROPHILS # 9.2 10^3/uL (1.5-8.5); NEUTROPHILS % 78.7 % (36.0-66.0); PLATELET COUNT, AUTOMATED 340 10^3/uL (150-450); RED BLOOD COUNT 5.12 10^6/uL (4.30-6.10); WHITE BLOOD COUNT 11.7 10^3/uL (4.0-10.0)
[2023-09-21 14:25] LABS: ALBUMIN 4.5 G/DL (3.2-5.2); ALKALINE PHOSPHATASE 75 U/L (46-116); ALT/SGPT 50 U/L (7.0-40); AST/SGOT 27 U/L (<34); BILIRUBIN,TOTAL 0.4 MG/DL (0.3-1.2); BLOOD UREA NITROGEN 8 MG/DL (9-23); CALCIUM LEVEL 11.1 MG/DL (8.5-10.1); CARBON DIOXIDE LEVEL 32 MMOL/L (20-31); CHLORIDE LEVEL 103 MMOL/L (98-107); CREATININE FOR GFR 0.64 MG/DL (0.70-1.30); GLOMERULAR FILTRATION RATE > 60.0 (>60); GLUCOSE, FASTING 114 MG/DL (60-100); POTASSIUM SERUM 4.4 MMOL/L (3.5-5.1); SODIUM LEVEL 139 MMOL/L (136-145); TOTAL PROTEIN 8.2 G/DL (5.7-8.2)
[2023-09-21 14:27] LABS: THYROID STIMULATING HORMONE 0.367 uIU/ML (0.55-4.78)
[2023-09-21 14:56] VITALS: BP 151/83; TEMP 97.6; O2SAT 98
== END 2023-09-21 14:54 | disposition home or self-care (01) ==
LOC: M ED 11:48
DX: J06.9 Acute upper respiratory infection, unspecified (principal); F41.9 Anxiety disorder, unspecified; F32.9 Major depressive disorder, single episode, unspecified; K21.9 Gastro-esophageal reflux disease without esophagitis; R73.09 Other abnormal glucose; Z79.899 Other long term (current) drug therapy; Z88.2 Allergy status to sulfonamides; Z88.1 Allergy status to other antibiotic agents

== ENCOUNTER 2023-12-10 12:41 | Emergency (ER) | payer MEDICAID, OTHER ==
[~2023-12-10] VITALS: Ht 154.9 cm; Wt 80.8 kg
[~2023-12-10 12:41] MED LIST changes: +ATOR40TA75 PO; +LISI20TA33 PO
[2023-12-10 16:20] LABS: HEMATOCRIT 41.2 % (42.0-52.0); HEMOGLOBIN 13.2 g/dl (13.5-17.5); MEAN CORPUSCULAR HEMOGLOBIN 27.8 pg (27.0-33.0); MEAN CORPUSCULAR VOLUME 86.7 fl (80.0-96.0); PLATELET COUNT, AUTOMATED 393 10^3/uL (150-450); RED BLOOD COUNT 4.75 10^6/uL (4.30-6.10)
[2023-12-10 16:38] LABS: BLOOD UREA NITROGEN 9 MG/DL (9-23); CALCIUM LEVEL 9.6 MG/DL (8.5-10.1); CARBON DIOXIDE LEVEL 29 MMOL/L (20-31); CHLORIDE LEVEL 100 MMOL/L (98-107); CREATININE FOR GFR 0.66 MG/DL (0.70-1.30); GLOMERULAR FILTRATION RATE > 60.0 (>60); GLUCOSE, FASTING 102 MG/DL (60-100); SODIUM LEVEL 135 MMOL/L (136-145)
[2023-12-10 16:41] LABS: ERYTHROCYTE SEDIMENTATION RATE 106 mm/hr (0-15)
[2023-12-10] MEDS ORDERED: DOXY-323 PO (16:46)
[2023-12-10] MEDS: DOXYCYCLINE HYCLATE 100MG TABLET PO ONE (17:04)
[2023-12-10 17:09] VITALS: BP 144/88; TEMP 97.7; O2SAT 96
== END 2023-12-10 17:17 | disposition home or self-care (01) ==
LOC: M ED 12:41
DX: L03.115 Cellulitis of right lower limb (principal); I10 Essential (primary) hypertension; E78.5 Hyperlipidemia, unspecified; F41.9 Anxiety disorder, unspecified; F32.A Depression, unspecified; E11.9 Type 2 diabetes mellitus without complications; Z79.84 Long term (current) use of oral hypoglycemic drugs; Z79.899 Other long term (current) drug therapy; Z88.2 Allergy status to sulfonamides; Z88.1 Allergy status to other antibiotic agents

== ENCOUNTER → 2024-03-06 | Outpatient (CLI) | payer OTHER ==
[~2024-03-06] MED LIST changes: +DOXY-441 PO
[2024-03-06 12:26] LABS: BASO # 0.1 10^3/uL (0.0-0.2); BASO % 0.8 % (0.0-1.0); EOS # 0.3 10^3/uL (0.0-0.5); EOS % 3.5 % (0.0-3.0); HEMATOCRIT 45.9 % (42.0-52.0); HEMOGLOBIN 14.7 g/dl (13.5-17.5); LYMPH % 40.8 % (24.0-44.0); MEAN CORPUSCULAR HEMOGLOBIN 28.1 pg (27.0-33.0); MEAN CORPUSCULAR VOLUME 87.6 fl (80.0-96.0); MONO # 0.7 10^3/uL (0.0-0.8); MONO % 8.9 % (2.0-8.0); NEUTROPHILS # 3.4 10^3/uL (1.5-8.5); NEUTROPHILS % 45.9 % (36.0-66.0); PLATELET COUNT, AUTOMATED 343 10^3/uL (150-450); RED BLOOD COUNT 5.24 10^6/uL (4.30-6.10); WHITE BLOOD COUNT 7.3 10^3/uL (4.0-10.0)
[2024-03-06 12:43] LABS: HEMOGLOBIN A1c 6.1 % (4.0-6.0)
[2024-03-06 12:51] LABS: ALBUMIN 4.3 G/DL (3.2-5.2); ALKALINE PHOSPHATASE 83 U/L (46-116); ALT/SGPT 57 U/L (7.0-40); AST/SGOT 28 U/L (<34); BILIRUBIN,TOTAL 0.6 MG/DL (0.3-1.2); BLOOD UREA NITROGEN 11 MG/DL (9-23); CALCIUM LEVEL 10.3 MG/DL (8.5-10.1); CARBON DIOXIDE LEVEL 30 MMOL/L (20-31); CHLORIDE LEVEL 103 MMOL/L (98-107); CHOLESTEROL LEVEL 204 MG/DL (<200); GLOMERULAR FILTRATION RATE > 60.0 (>60); GLUCOSE, FASTING 115 MG/DL (60-100); HDL CHOLESTEROL 52.2 MG/DL (>40); LDL CHOLESTEROL 95.8 MG/DL (<100); NON-HDL-C 151.8 MG/DL; POTASSIUM SERUM 5.1 MMOL/L (3.5-5.1); SODIUM LEVEL 138 MMOL/L (136-145); TOTAL PROTEIN 8.5 G/DL (5.7-8.2); TRIGLYCERIDES LEVEL 280 MG/DL (<150)
[2024-03-06 12:55] LABS: THYROID STIMULATING HORMONE 1.081 uIU/ML (0.55-4.78)
== END ==
LOC: M RAD 11:18
PROVIDERS: ATTEND Nurse Practitioner Adult Health
DX: M25.511 Pain in right shoulder (principal)

== ENCOUNTER 2024-04-21 14:09 | Emergency (ER) | payer MEDICAID, OTHER ==
[~2024-04-21] VITALS: Ht 152.4 cm; Wt 81.4 kg
[2024-04-21] MEDS ORDERED: FLUTISP (14:26)
[2024-04-21 15:26] LABS: BASO # 0.1 10^3/uL (0.0-0.2); BASO % 0.4 % (0.0-1.0); EOS # 0.1 10^3/uL (0.0-0.5); EOS % 0.9 % (0.0-3.0); HEMATOCRIT 40.2 % (42.0-52.0); HEMOGLOBIN 13.6 g/dl (13.5-17.5); LYMPH # 2.5 10^3/uL (1.5-5.0); LYMPH % 21.2 % (24.0-44.0); MEAN CORPUSCULAR HEMOGLOBIN 29.5 pg (27.0-33.0); MEAN CORPUSCULAR HGB CONC 33.8 g/dl (32.0-36.5); MEAN CORPUSCULAR VOLUME 87.2 fl (80.0-96.0); MONO # 0.5 10^3/uL (0.0-0.8); MONO % 4.4 % (2.0-8.0); NEUTROPHILS # 8.5 10^3/uL (1.5-8.5); NEUTROPHILS % 72.8 % (36.0-66.0); PLATELET COUNT, AUTOMATED 323 10^3/uL (150-450); RED BLOOD COUNT 4.61 10^6/uL (4.30-6.10); WHITE BLOOD COUNT 11.7 10^3/uL (4.0-10.0)
[2024-04-21 15:30] VITALS: BP 118/59
[2024-04-21 15:39] VITALS: TEMP 96.8; O2SAT 96
[2024-04-21 15:51] LABS: CK-MB VALUE MASS 1.5 NG/ML (<3.6); LIPASE 33 U/L (12-53)
[2024-04-21 15:53] LABS: ALBUMIN 4.1 G/DL (3.2-5.2); ALKALINE PHOSPHATASE 69 U/L (40-129); ALT/SGPT 29 U/L (7.0-40); AST/SGOT 19 U/L (<34); BILIRUBIN,DIRECT 0.1 MG/DL (<0.4); BILIRUBIN,TOTAL 0.4 MG/DL (0.3-1.2); BLOOD UREA NITROGEN 13 MG/DL (9-23); CALCIUM LEVEL 10.5 MG/DL (8.5-10.1); CARBON DIOXIDE LEVEL 29 MMOL/L (20-31); CHLORIDE LEVEL 106 MMOL/L (98-107); CPK CREATINE PHOSPHOKINASE 240 U/L (46-171); CREATININE FOR GFR 0.66 MG/DL (0.70-1.30); GLOMERULAR FILTRATION RATE > 60.0 (>60); GLUCOSE, FASTING 178 MG/DL (60-100); MB/CK RELATIVE INDEX 0.62 (< OR =4); POTASSIUM SERUM 4.1 MMOL/L (3.5-5.1); SODIUM LEVEL 141 MMOL/L (136-145); TOTAL PROTEIN 7.5 G/DL (5.7-8.2)
[2024-04-21 15:54] LABS: THYROID STIMULATING HORMONE 0.719 uIU/ML (0.55-4.78)
[2024-04-21 15:55] LABS: FREE T4 1.04 NG/DL (0.89-1.76)
[2024-04-21] MEDS ORDERED: ISOVUE-370 76% 100ML VIAL As Ordered ONE (16:01)
== END 2024-04-21 17:24 | disposition home or self-care (01) ==
LOC: M ED 14:09
DX: R55 Syncope and collapse (principal); I10 Essential (primary) hypertension; F32.A Depression, unspecified; K21.9 Gastro-esophageal reflux disease without esophagitis; Z79.899 Other long term (current) drug therapy; Z88.2 Allergy status to sulfonamides; Z88.1 Allergy status to other antibiotic agents
CPT/HCPCS: 70450; 70496; 70498; 80053; 82248; 82550; 82553; 83690; 84439; 84443; 84484; 85025; 93005; 93041; 94760; 99285; Q9967

== ENCOUNTER 2025-02-28 09:27 | Emergency (ER) | payer MEDICAID, OTHER ==
[~2025-02-28] VITALS: Ht 152.4 cm; Wt 82.2 kg
[~2025-02-28 09:27] MED LIST changes: +FLUTISP NARES
[2025-02-28] MEDS ORDERED: ISOVUE-370 76% 100 ML VIAL As Ordered ONE (09:39)
[2025-02-28] MEDS: NS 500 ML IV ONE (09:44)
[2025-02-28 09:48] LABS: VENOUS BASE EXCESS 1.3 (-2.0-2.0); VENOUS HCO3 25.6 MMOL/L (23.0-27.0); VENOUS O2 SATURATION 89.1 % (60.0-80.0); VENOUS PARTIAL PRESSURE CO2 39.2 mmHg (38.0-50.0); VENOUS PARTIAL PRESSURE O2 55.6 mmHg (30.0-50.0); VENOUS PH 7.432 UNITS (7.330-7.430); VENOUS STANDARD HCO3 25.4 MMOL/L; VENOUS TOTAL CO2 26.8 MMOL/L (24.0-28.0)
[2025-02-28 09:51] LABS: BASO # 0.1 10^3/uL (0.0-0.2); BASO % 0.4 % (0.0-1.0); EOS # 0.2 10^3/uL (0.0-0.5); EOS % 1.2 % (0.0-3.0); LYMPH # 1.7 10^3/uL (1.5-5.0); LYMPH % 13.6 % (24.0-44.0); MONO # 1.0 10^3/uL (0.0-0.8); MONO % 7.7 % (2.0-8.0); NEUTROPHILS # 9.5 10^3/uL (1.5-8.5); NEUTROPHILS % 76.7 % (36.0-66.0); PLATELET COUNT, AUTOMATED 266 10^3/uL (150-450)
[2025-02-28 10:03] LABS: INR 0.98
[2025-02-28 10:16] LABS: KETONE, URINE AUTO RFX NEGATIVE (NEGATIVE); LEUKOCYTE ESTERASE UR AUTO RFX NEGATIVE (NEGATIVE); MUCUS, URINE RFX SMALL (NEGATIVE); NITRITE, URINE AUTO RFX NEGATIVE (NEGATIVE); RBC, URINE AUTO RFX 0 /HPF (0-3); SQUAM EPITHELIAL CELL UR AURFX 0 /HPF (0-6); WBC, URINE AUTO RFX 3 /HPF (0-3)
[2025-02-28 10:19] LABS: CK-MB VALUE MASS 1.3 NG/ML (<3.6)
[2025-02-28 10:20] LABS: ETHYL ALCOHOL (ETHANOL) < 0.003 % (0.000-0.010)
[2025-02-28 10:21] LABS: SALICYLATE LEVEL < 3.0 MG/DL (<30)
[2025-02-28 10:22] LABS: ALT/SGPT 17 U/L (7.0-40); AST/SGOT 18 U/L (<34); CALCIUM LEVEL 9.1 MG/DL (8.5-10.1); CARBON DIOXIDE LEVEL 27 MMOL/L (20-31); CHLORIDE LEVEL 103 MMOL/L (98-107); CREATININE FOR GFR 0.77 MG/DL (0.70-1.30); GLOMERULAR FILTRATION RATE > 90.0 (>60); POTASSIUM SERUM 3.7 MMOL/L (3.5-5.1); SODIUM LEVEL 137 MMOL/L (136-145)
[2025-02-28 10:25] LABS: CPK CREATINE PHOSPHOKINASE 210 U/L (46-171); MB/CK RELATIVE INDEX 0.61 (< OR =4)
[2025-02-28 10:41] LABS: AMPHETAMINES LEVEL URINE NEGATIVE (NEGATIVE); BARBITURATES URINE NEGATIVE (NEGATIVE); BENZODIAZEPINES URINE NEGATIVE (NEGATIVE); COCAINE METABOLITE URINE NEGATIVE (NEGATIVE); METHADONE URINE NEGATIVE (NEGATIVE); OPIATES URINE NEGATIVE (NEGATIVE); PHENCYCLIDINE URINE NEGATIVE (NEGATIVE)
[2025-02-28 10:42] LABS: CANNABINOIDS URINE NEGATIVE (NEGATIVE)
[2025-02-28 11:53] LABS: CK-MB VALUE MASS 1.2 NG/ML (<3.6)
[2025-02-28 12:00] LABS: CPK CREATINE PHOSPHOKINASE 199.0 U/L (46-171); MB/CK RELATIVE INDEX 0.6 (< OR =4)
[2025-02-28] MEDS ORDERED: HOME MED LIST COMPLETE! XX SCH ×2 (13:35)
[2025-02-28 13:56] VITALS: BP 121/63; TEMP 99.2; O2SAT 96
== END 2025-02-28 14:27 | disposition home or self-care (01) ==
LOC: EDBD 09:27 → M ED 09:27
DX: R41.82 Altered mental status, unspecified (principal); F60.3 Borderline personality disorder; Z79.4 Long term (current) use of insulin; Z79.899 Other long term (current) drug therapy; Z88.2 Allergy status to sulfonamides; Z88.1 Allergy status to other antibiotic agents
CPT/HCPCS: 70450; 70496; 70498; 71045; 80047; 80048; 80076; 80143; 80307; 81001; 82077; 82140; 82550; 82553; 82803; 83605; 84443; 84484; 85025; 85610; 85730; 93005; 93041; 94760; 96360; 96361; 99285; Q9967

== ENCOUNTER → 2025-04-02 | Outpatient (CLI) | payer OTHER ==
[2025-04-02 14:10] LABS: PLATELET COUNT, AUTOMATED 405 10^3/uL (150-450)
[2025-04-02 14:25] LABS: ESTIMATED AVERAGE GLUCOSE 151.0 MG/DL (60-110)
[2025-04-02 15:48] LABS: ALT/SGPT 32 U/L (7.0-40); AST/SGOT 27 U/L (<34); CALCIUM LEVEL 9.3 MG/DL (8.5-10.1); CARBON DIOXIDE LEVEL 31 MMOL/L (20-31); CHLORIDE LEVEL 96 MMOL/L (98-107); CHOLESTEROL LEVEL 129 MG/DL (<200); CHOLESTEROL RISK RATIO 2.96 (<5); CREATININE FOR GFR 0.69 MG/DL (0.70-1.30); GLOMERULAR FILTRATION RATE > 90.0 (>60); LDL CHOLESTEROL 56.7 MG/DL (<100); NON-HDL-C 85.5 MG/DL; POTASSIUM SERUM 4.3 MMOL/L (3.5-5.1); SODIUM LEVEL 138 MMOL/L (136-145); TRIGLYCERIDES LEVEL 144 MG/DL (<150)
[2025-04-02 15:50] LABS: FREE T4 1.02 NG/DL (0.89-1.76)
== END ==
LOC: M LAB 13:22
DX: E11.9 Type 2 diabetes mellitus without complications (principal); R53.83 Other fatigue; I10 Essential (primary) hypertension; E78.5 Hyperlipidemia, unspecified; Z79.899 Other long term (current) drug therapy